=== PATIENT | female | born 1945 | race African-American/Black ===

== ENCOUNTER → 2016-12-20 | Outpatient (CLI) | payer MEDICARE, MEDICAID ==
[~2016-12-20] MED LIST: ASPI-231 PO; POTA10IN PO; ROSU10TA16 PO; THYR60TA PO; VER5I PO
[2016-12-20 13:50] LABS: Basophils # (auto) 0 uL; Basophils % (auto) 0.4 % (0.0-2.0); Eosinophils # (auto) 0.3 uL; Eosinophils % (auto) 6.1 % (0.0-7.0); Hematocrit 39.6 % (36.0-46.0); Hemoglobin 12.5 g/dL (12.2-16.2); Lymphocytes # (auto) 1.9 uL; Lymphocytes % (auto) 36.6 % (10.0-50.0); Mean Corpuscular Hemoglobin 29.7 pg (28.0-32.0); Mean Corpuscular Hgb Conc. 31.6 g/dL (32.0-36.0); Mean Corpuscular Volume 94.2 fL (80.0-100.0); Mean Platelet Volume 8.8 fL (7.4-10.4); Monocytes # (auto) 0.5 uL; Monocytes % (auto) 9.9 % (0.0-12.0); Neutrophils # (auto) 2.4 uL; Platelet Count (auto) 238 10^3/uL (140-450); Red Cell Distribution Width 14.1 % (11.6-16.0); White Blood Cell 5.2 10^3/uL (4.4-10.8)
[2016-12-20 14:17] LABS: Albumin 4.1 g/dL (3.4-5.0); BUN/Creatinine Ratio 14.1; Bilirubin, Total 0.7 mg/dL (0.2-1.0); Calcium 8.9 mg/dL (8.5-10.1); Potassium 3.1 mmol/L (3.5-5.1); Total Protein 8.2 g/dL (6.4-8.2)
[2016-12-20 15:33] LABS: Urine Bilirubin Negative (Negative); Urine Blood Negative /uL (Negative); Urine Color Yellow (Yellow); Urine Glucose TRACE mg/dL (Normal); Urine Hyaline Cast MOD /lpf (0 - 2); Urine Ketone Negative (Negative); Urine Mucus FEW (None Seen); Urine Nitrite Negative (Negative); Urine RBC 1 /hpf (0 - 4); Urine Squamous Epithelial Cell FEW /hpf (<5)
== END | disposition home or self-care (01) ==
LOC: LAB 12:36
PROVIDERS: ATTEND Internal Medicine
DX: Z00.00 Encounter for general adult medical examination without abnormal findings (principal); I10 Essential (primary) hypertension; E11.9 Type 2 diabetes mellitus without complications; E55.9 Vitamin D deficiency, unspecified
CPT/HCPCS: 36415; 80053; 80061; 81001; 82306; 83036; 84439; 84443; 84481; 85025

== ENCOUNTER 2024-02-07 20:58 | Inpatient (IN) | payer MEDICARE, MEDICAID ==
[~2024-02-07] VITALS: Ht 167.6 cm; Wt 85.8 kg
[~2024-02-07 20:58] MED LIST changes: -ASPI-231 PO; +ASPI1TAB20 PO
[2024-02-07] MEDS: IOHEXOL 350 MG/ML 100ML IJ ONE (21:22)
[2024-02-07 21:25] LABS: Basophils # (auto) 0.1 10 ^3/uL (0-0.2); Basophils % (auto) 0.8 % (0.0-2.0); Eosinophils # (auto) 0.2 10 ^3/uL (0-0.8); Eosinophils % (auto) 2.5 % (0.0-7.0); Hematocrit 41.7 % (36.0-46.0); Hemoglobin 13.6 g/dL (12.2-16.2); Lymphocytes # (auto) 2.1 10 ^3/uL (0.4-5.4); Lymphocytes % (auto) 34.2 % (10.0-50.0); Mean Corpuscular Hemoglobin 30.6 pg (28.0-32.0); Mean Corpuscular Hgb Conc. 32.7 g/dL (32.0-36.0); Mean Corpuscular Volume 93.6 fL (80.0-100.0); Monocytes # (auto) 0.6 10 ^3/uL (0-1.3); Monocytes % (auto) 9.2 % (0.0-12.0); Neutrophils # (auto) 3.3 10 ^3/uL (1.6-8.6); Neutrophils % (auto) 53.3 % (37.0-80.0); Red Blood Cells 4.45 10^6/uL (4.0-5.20); Red Cell Distribution Width 14.3 % (11.8-14.3); White Blood Cell 6.2 10^3/uL (4.4-10.8)
[2024-02-07 21:35] LABS: Chloride 106 mmol/L (98-107); Potassium 3.3 mmol/L (3.5-5.1); Sodium 142 mmol/L (136-145)
[2024-02-07 21:36] LABS: Anion Gap 9 (5-15); Calcium 9.5 mg/dL (8.5-10.1); Carbon Dioxide 27 mmol/L (20-30)
[2024-02-07 21:38] LABS: INR 1.03 (0.9-1.15); Prothrombin Time 10.8 sec (9.3-11.8)
[2024-02-07 21:41] LABS: BUN/Creatinine Ratio 14.7 (10.0-20.0); Blood Urea Nitrogen 14 mg/dL (9-23); Glucose 100 mg/dL (74-106)
[2024-02-07 22:00] VITALS: PULSE 70; RESP 15; O2SAT 98
[2024-02-07] MEDS: ASPirin 325 MG TAB PO ONE (22:55)
[2024-02-07] MEDS ORDERED: EMPA1TAB3 PO (23:32)
[2024-02-07] MEDS ORDERED: LEV25T PO (23:37)
[2024-02-07] MEDS ORDERED: AMLO1TAB22 PO (23:37)
[2024-02-07] MEDS ORDERED: METO1TAB9 PO (23:37)
[2024-02-07] MEDS ORDERED: HYDROcodone-ACET 5/325MG TAB PO PRN (23:45)
[2024-02-07] MEDS ORDERED: DOCUSATE SOD 100 MG CAP PO PRN (23:45)
[2024-02-07] MEDS ORDERED: ONDANSETRON HCL 4 MG/2 ML VIAL IV PRN (23:45)
[2024-02-07] MEDS ORDERED: ACETAMINOPHEN 325 MG TAB PO PRN (23:45)
[2024-02-07] MEDS ORDERED: NITROGLYCERIN 0.4 MG SL TAB SL PRN (23:45)
[2024-02-07] MEDS ORDERED: DEXTROSE (50%) 50ML SYRG IV PRN (23:45)
[2024-02-07] MEDS ORDERED: MORPHINE SULFATE INJ 2 MG/ml SYRG IV PRN (23:45)
[2024-02-08] VITALS (12 sets, daily range): BP systolic 113–168; BP diastolic 67–92; PULSE 58–99; RESP 14–20; TEMP 37.1; O2SAT 90–98
[2024-02-08] MEDS: POTASSIUM CHL 20MEQ/100ML 100 ML IV ONE (00:04)
[2024-02-08 06:12] LABS: Basophils # (auto) 0 10 ^3/uL (0-0.2); Basophils % (auto) 0.7 % (0.0-2.0); Eosinophils # (auto) 0.2 10 ^3/uL (0-0.8); Eosinophils % (auto) 3.2 % (0.0-7.0); Hematocrit 36.4 % (36.0-46.0); Lymphocytes # (auto) 1.8 10 ^3/uL (0.4-5.4); Lymphocytes % (auto) 36.8 % (10.0-50.0); Mean Corpuscular Hemoglobin 30.9 pg (28.0-32.0); Mean Corpuscular Hgb Conc. 33.1 g/dL (32.0-36.0); Mean Corpuscular Volume 93.4 fL (80.0-100.0); Monocytes # (auto) 0.5 10 ^3/uL (0-1.3); Monocytes % (auto) 10.3 % (0.0-12.0); Neutrophils # (auto) 2.4 10 ^3/uL (1.6-8.6); Red Cell Distribution Width 14.3 % (11.8-14.3); White Blood Cell 4.8 10^3/uL (4.4-10.8)
[2024-02-08] MEDS: LEVOTHYROXINE SODIUM 25 MCG TAB PO SCH (06:12)
[2024-02-08] MEDS: SODIUM CHLOR 0.9% PF (SALINE LOCK) 10ML VIAL/SYR IV SCH (06:14)
[2024-02-08] MEDS: ACCU-CHEK COMFORT CURVE STRIP VI SCH (06:14)
[2024-02-08] MEDS: InsuLIN REG 1unit/0.01ml Soln (100units/ml) SC SCH ×2 (06:14→21:30)
[2024-02-08 06:28] LABS: Alanine Aminotransferase 40 U/L (7-40); Albumin 4.2 g/dL (3.2-4.8); Alkaline Phosphatase 68 U/L (46-116); Anion Gap 7 (5-15); Aspartate Aminotransferase 38 U/L (13-40); BUN/Creatinine Ratio 13.2 (10.0-20.0); Blood Urea Nitrogen 9 mg/dL (9-23); Calcium 8.8 mg/dL (8.5-10.1); Carbon Dioxide 26 mmol/L (20-30); Chloride 109 mmol/L (98-107); Glucose 100 mg/dL (74-106); Potassium 3.6 mmol/L (3.5-5.1); Sodium 142 mmol/L (136-145)
[2024-02-08 06:29] LABS: Bilirubin, Total 0.4 mg/dL (0.2-1.0); Total Protein 6.3 g/dL (5.7-8.2)
[2024-02-08 08:05] LABS: CRP High Sensitivity 0.07 mg/dL (<1.0)
[2024-02-08 08:44] LABS: Erythrocyte Sedimentation Rate 12 mm/hr (0-20)
[2024-02-08 08:53] LABS: Magnesium 1.7 mg/dL (1.6-2.6)
[2024-02-08 09:01] LABS: % Iron Saturation 32.2 % (15-50)
[2024-02-08 09:10] LABS: Ferritin 183.7 ng/mL (10-291); Folate (Folic Acid) 12.68 ng/mL (>5.38)
[2024-02-08] MEDS: ATORVASTATIN 20 MG TAB PO ONE (09:36)
[2024-02-08] MEDS: CLOPIDOGREL BISULFATE 75 MG TAB PO SCH (09:38)
[2024-02-08] MEDS: METOPROLOL SUCCINATE XL 50 MG TAB PO SCH (09:38)
[2024-02-08] MEDS: ASPirin-EC 81 mg tab PO SCH (09:39)
[2024-02-08] MEDS: amLODIPine BESYLATE 5 MG TAB PO SCH (09:39)
[2024-02-08] MEDS: EMPAGLIFLOZIN 10 MG TAB PO SCH (09:55)
[2024-02-08] MEDS: MIDAZOLAM HCL 2MG/2ML 2ml VIAL (1mg/ml) IV ONE (11:30)
[2024-02-08] MEDS: LIDOCAINE VISCOUS 2% 15ML UD PO ONE (11:30)
[2024-02-08] MEDS: fentaNYL CITRATE 100 MCG/2 ML VL IV ONE (11:30)
[2024-02-08] MEDS: MIDAZOLAM HCL 2MG/2ML 2ml VIAL (1mg/ml) ONE (11:36)
[2024-02-08] MEDS: PANTOPRAZOLE 40 MG TAB PO ONE (17:21)
[2024-02-08] MEDS: ENOXAPARIN SOD 40 MG/0.4 ML SYRINGE SC ONE (17:22)
[2024-02-08 18:29] LABS: Urine Bacteria NONE SEEN /hpf (None Seen); Urine Blood Negative /uL (Negative); Urine Clarity Clear (Clear); Urine Color Colorless (Yellow); Urine Protein, UAD 1+ (Negative); Urine Specific Gravity 1.023 (1.001-1.035); Urine Urobilinogen Normal (Negative); Urine WBC <1 /hpf (0 - 5); Urine pH 5.5 (5.0-8.0)
[2024-02-09] VITALS (8 sets, daily range): BP systolic 119–141; BP diastolic 61–83; PULSE 66–93; RESP 16–20; TEMP 97.8–98.4; O2SAT 91–96
[2024-02-09 06:26] LABS: Basophils # (auto) 0 10 ^3/uL (0-0.2); Basophils % (auto) 0.8 % (0.0-2.0); Eosinophils # (auto) 0.2 10 ^3/uL (0-0.8); Eosinophils % (auto) 3.9 % (0.0-7.0); Hemoglobin 12.5 g/dL (12.2-16.2); Lymphocytes # (auto) 1.7 10 ^3/uL (0.4-5.4); Lymphocytes % (auto) 39.6 % (10.0-50.0); Mean Corpuscular Hemoglobin 31.3 pg (28.0-32.0); Mean Corpuscular Hgb Conc. 33.7 g/dL (32.0-36.0); Monocytes # (auto) 0.5 10 ^3/uL (0-1.3); Neutrophils # (auto) 1.8 10 ^3/uL (1.6-8.6); Neutrophils % (auto) 43.7 % (37.0-80.0); Nucleated Red Blood Cells % 0.1 %; Red Blood Cells 3.98 10^6/uL (4.0-5.20); Red Cell Distribution Width 14.4 % (11.8-14.3); White Blood Cell 4.2 10^3/uL (4.4-10.8)
[2024-02-09 06:46] LABS: Alanine Aminotransferase 35 U/L (7-40); Albumin 3.9 g/dL (3.2-4.8); Alkaline Phosphatase 56 U/L (46-116); Anion Gap 5 (5-15); Aspartate Aminotransferase 26 U/L (13-40); BUN/Creatinine Ratio 11.3 (10.0-20.0); Bilirubin, Total 0.7 mg/dL (0.2-1.0); Blood Urea Nitrogen 8 mg/dL (9-23); Calcium 8.9 mg/dL (8.7-10.4); Carbon Dioxide 28 mmol/L (20-30); Chloride 107 mmol/L (98-107); Glucose 88 mg/dL (74-106); Magnesium 1.8 mg/dL (1.6-2.6); Potassium 3.2 mmol/L (3.5-5.1); Sodium 140 mmol/L (136-145); Total Protein 6.6 g/dL (5.7-8.2)
[2024-02-09] MEDS: POTASSIUM CHLORIDE 60 MEQ, LIDOCAINE 1% (LOCAL ANESTH.) 6 ML in SODIUM CHL 0.9% 500 ML IV ONE (09:59)
[2024-02-09] MEDS: PANTOPRAZOLE 40 MG TAB PO SCH (09:59)
[2024-02-09] MEDS: CLOPIDOGREL BISULFATE 75 MG TAB PO SCH (10:00)
[2024-02-09] MEDS: ENOXAPARIN SOD 40 MG/0.4 ML SYRINGE SC SCH (10:01)
[2024-02-09] MEDS: METOPROLOL SUCCINATE XL 50 MG TAB PO SCH (14:44)
[2024-02-09] MEDS: ATORVASTATIN 20 MG TAB PO SCH (21:42)
[2024-02-10 01:00] VITALS: BP_SYST 124; BP_SYST 125; BP_DIAS 81; BP_DIAS 91; PULSE 74; PULSE 79; RESP 16; RESP 18; TEMP 98.2; TEMP 98.3; O2SAT 92; O2SAT 96
[2024-02-10 05:00] VITALS: BP 124/81; PULSE 74; RESP 18; TEMP 98.2; O2SAT 92
[2024-02-10 07:13] LABS: Anion Gap 8 (5-15); Calcium 9.1 mg/dL (8.5-10.1); Carbon Dioxide 25 mmol/L (20-30); Chloride 108 mmol/L (98-107); Potassium 3.4 mmol/L (3.5-5.1); Sodium 141 mmol/L (136-145)
[2024-02-10 07:18] LABS: Glucose 90 mg/dL (74-106)
[2024-02-10 07:19] LABS: BUN/Creatinine Ratio 11.4 (10.0-20.0); Blood Urea Nitrogen 8 mg/dL (9-23)
[2024-02-10 08:00] VITALS: BP 122/69; PULSE 62; RESP 20; TEMP 97.7; O2SAT 92
[2024-02-10] MEDS ORDERED: CLOP75TA70 PO (09:25)
[2024-02-10] MEDS ORDERED: ATOR20TA PO (09:25)
[2024-02-10] MEDS ORDERED: ASPI-543 PO (09:25)
[2024-02-10] MEDS ORDERED: PANT40T PO (09:25)
[2024-02-10] MEDS: POTASSIUM EFFERVESENT TAB 25 MEQ PO ONE (09:44)
[2024-02-10 10:29] VITALS: BP 122/69; PULSE 62; RESP 20; TEMP 97.6; O2SAT 92
[2024-02-10 12:00] VITALS: BP 133/76; PULSE 74; RESP 20; TEMP 97.8; O2SAT 98
== END 2024-02-10 12:20 | disposition home or self-care (01) | DRG 65 ==
LOC: ER 20:58 → TELE 23:42 → TELE-WESTW 23:42
PROVIDERS: ADMIT Internal Medicine; ATTEND Emergency Medicine
PROC: B24BZZ4 Ultrasonography of Heart with Aorta, Transesophageal (ICD-10-PCS; principal; 2024-02-08)
DX: I63.9 Cerebral infarction, unspecified (principal); I69.354 Hemiplegia and hemiparesis following cerebral infarction affecting left non-dominant side; E87.6 Hypokalemia; I10 Essential (primary) hypertension; E11.9 Type 2 diabetes mellitus without complications; E78.5 Hyperlipidemia, unspecified; R29.810 Facial weakness; Z96.643 Presence of artificial hip joint, bilateral; E66.9 Obesity, unspecified; E03.9 Hypothyroidism, unspecified; R29.703 NIHSS score 3; F17.210 Nicotine dependence, cigarettes, uncomplicated; I44.0 Atrioventricular block, first degree; R47.01 Aphasia; G83.21 Monoplegia of upper limb affecting right dominant side; I34.0 Nonrheumatic mitral (valve) insufficiency; D64.9 Anemia, unspecified; R47.1 Dysarthria and anarthria; Z90.710 Acquired absence of both cervix and uterus; Z90.49 Acquired absence of other specified parts of digestive tract; Z79.82 Long term (current) use of aspirin; Z79.899 Other long term (current) drug therapy; Z82.49 Family history of ischemic heart disease and other diseases of the circulatory system; Z79.02 Long term (current) use of antithrombotics/antiplatelets; Z68.30 Body mass index [BMI] 30.0-30.9, adult; Z79.84 Long term (current) use of oral hypoglycemic drugs
CPT/HCPCS: 36415; 70450; 70496; 70551; 71045; 80048; 80053; 80061; 81001; 82306; 82533; 82607; 82728; 82746; 82962; 83036; 83540; 83550; 83735; 83880; 84443; 84484; 85025; 85610; 85652; 86141; 92610; 93005; 93306; 93312; 93970; 97110; 97116; 97163; 99152; 99291; G0378; J2001; J2250; J3480

== ENCOUNTER → 2024-03-06 | Outpatient (CLI) | payer MEDICARE, MEDICAID ==
[~2024-03-06] MED LIST changes: +AMLO1TAB22 PO; +ASPI-543 PO; +ATOR20TA PO; +CLOP75TA70 PO; +EMPA1TAB3 PO; +LEV25T PO; +METO1TAB9 PO; +PANT40T PO; -ROSU10TA16 PO; -THYR60TA PO; -VER5I PO
[2024-03-06 15:13] LABS: Urine Bacteria None Seen /hpf (None Seen)
[2024-03-06 15:18] LABS: Basophils # (auto) 0 10 ^3/uL (0-0.2); Basophils % (auto) 0.8 % (0.0-2.0); Eosinophils # (auto) 0.3 10 ^3/uL (0-0.8); Eosinophils % (auto) 6.3 % (0.0-7.0); Hematocrit 42.4 % (36.0-46.0); Hemoglobin 13.9 g/dL (12.2-16.2); Lymphocytes # (auto) 1.4 10 ^3/uL (0.4-5.4); Lymphocytes % (auto) 31.9 % (10.0-50.0); Mean Corpuscular Hemoglobin 30.4 pg (28.0-32.0); Mean Corpuscular Hgb Conc. 32.9 g/dL (32.0-36.0); Mean Corpuscular Volume 92.5 fL (80.0-100.0); Monocytes # (auto) 0.5 10 ^3/uL (0-1.3); Monocytes % (auto) 11.5 % (0.0-12.0); Neutrophils # (auto) 2.2 10 ^3/uL (1.6-8.6); Neutrophils % (auto) 49.5 % (37.0-80.0); Red Blood Cells 4.58 10^6/uL (4.0-5.20); Red Cell Distribution Width 13.8 % (11.8-14.3); White Blood Cell 4.4 10^3/uL (4.4-10.8)
[2024-03-06 15:41] LABS: Alanine Aminotransferase 29 U/L (7-40); Albumin 4.9 g/dL (3.2-4.8); Alkaline Phosphatase 62 U/L (46-116); Anion Gap 8 (5-15); Aspartate Aminotransferase 20 U/L (13-40); BUN/Creatinine Ratio 11.1 (10.0-20.0); Bilirubin, Total 0.6 mg/dL (0.2-1.0); Blood Urea Nitrogen 11 mg/dL (9-23); Calcium 9.7 mg/dL (8.5-10.1); Carbon Dioxide 28 mmol/L (20-30); Chloride 104 mmol/L (98-107); Glucose 95 mg/dL (74-106); Sodium 140 mmol/L (136-145); Total Protein 7.9 g/dL (5.7-8.2)
[2024-03-06 16:33] LABS: Urine Blood Negative /uL (Negative); Urine Clarity Clear (Clear); Urine Color Yellow (Yellow); Urine Mucus FEW (None Seen); Urine Protein, UAD 1+ (Negative); Urine Specific Gravity 1.029 (1.001-1.035); Urine Urobilinogen Normal (Negative); Urine WBC 2 /hpf (0 - 5); Urine pH 5.5 (5.0-9.0)
== END | disposition home or self-care (01) ==
LOC: LAB 15:02
PROVIDERS: ATTEND Internal Medicine
DX: I10 Essential (primary) hypertension (principal)
CPT/HCPCS: 36415; 80053; 81001; 82043; 85025

== ENCOUNTER → 2025-02-18 | Outpatient (CLI) | payer MEDICARE, MEDICAID ==
--- NOTE | 2025-02-18 14:08 | DVHSR ---
APPROVED REPORT EXAM: Two-dimensional and M-mode echocardiogram with Doppler and color Doppler. DIMENSIONS LVDd4.7 (3.8-5.7cm)LA (2D)3.7 (1.9-4.0cm)Aortic Root3.2 (2.0-3.7cm) LVDs3.3 (2.5-4.0cm)LA (MM) (1.9-4.0cm)Aortic Cusp Exc1.8 (1.5-2.0cm) EF (%) 56.0 (55-70%)Rt. Atrium3.9 (1.9-4.0cm)Asc. Aorta3.4 cm IVSd1.0 (0.7-1.1cm)RV (D)4.9 (1.8-2.4cm) PWd1.3 (0.7-1.1cm) Mitral Valve MitralMitral Stenosis E wave0.37m/sMV Mean GR.mmHg A wave0.68m/sMV Peak GR.154mmHg E/A ratio0.52D MVAcm2 DECEL [id number] 1/2 Tim[place] Aortic Valve Aortic ValveAortic Stenosis V10.81m/[place] Mean GR.mmHg V21.14m/[place] Peak GR.5mmHg LVOT Diameter2.2 (1.8-2.4cm)Doppler AVA2.70cm2 Pulmonic Valve V20.61m/s Tricuspid Valve TR Velocity2.47m/s [id number] LEFT VENTRICLE The left ventricle is normal size. The left ventricle is normal in structure and function. The Ejection Fraction is within normal limits. The Ejection Fraction is 55-60%. RIGHT VENTRICLE The right ventricle is mildly dilated. ATRIA The left atrium is mildly dilated. The right atrium size is normal. The interatrial septum is intact with no evidence for an atrial septal defect. MITRAL VALVE The mitral valve is normal in structure and function. Mitral regurgitation is moderate. PULMONIC VALVE The pulmonic valve is not well visualized. There is mild pulmonic valvular regurgitation. TRICUSPID VALVE The tricuspid valve is grossly normal. There is mild to moderate tricuspid regurgitation. AORTIC VALVE The aortic valve opens well. No aortic regurgitation is present. GREAT VESSELS The aortic root is normal size. PERICARDIAL EFFUSION There is no pericardial effusion. Conclusion EF >55% MOD TR MOD MR
== END | disposition home or self-care (01) ==
LOC: Rad HDHVI 12:58
PROVIDERS: ATTEND Internal Medicine Cardiovascular Disease
DX: I08.8 Other rheumatic multiple valve diseases (principal); I11.9 Hypertensive heart disease without heart failure; E78.5 Hyperlipidemia, unspecified
CPT/HCPCS: 93306

== ENCOUNTER → 2025-02-23 | Outpatient (CLI) | payer MEDICARE, MEDICAID ==
--- NOTE | 2025-02-27 12:50 | DVHSR ---
APPROVED REPORT Exam: Nuclear Stress Test Indication: Dyspnea Ht: 5 ft 6 in Wt: 172 lbs BSA: 1.88 m2 HR: 58 bpm BP: 147/80 mmHg BMI: 27.75 Rhythm: Bradycardia, First degree AV Block Medical History Medical History: HTN, Hyperlipidemia, Diabetes, Atrial Fibrillation, SOB, Chest pain Medications: Magnesium Glycinate, Levothyroxine, Metoprolol succinate, Amlodipine, Eliquis, Potassium , Jardiance, Rosuvastatin, Flecainide Allergies: No known drug allergies Cardiac Risk Factors: Family Hx of CAD Stress Test Details Stress Test: Exercise stress testing was performed using a Lavell protocol. HR Resting HR: 58 bpmMax Heart Rate (APMHR): 138.146104 bpm Max HR Achieved: 115 bpmTarget HR (85% APMHR): 117.441165 bpm % of APMHR: 83.33 Recovery HR: 70 bpm HR response to stress: Normal HR response to stress BP Resting BP: 147/80 mmHg Max BP: 168/81 mmHg Recovery BP: 146/78 mmHg BP response to stress: Normal blood pressure response to stress. ECG Resting ECG: Sinus Bradycardia Stress ECG: Sinus Tachycardia Arrhythmia: PACs, PVC Recovery ECG: Sinus Rhythm Clinical Reason for Termination: Dyspnea, Fatigue Stress Symptoms: Dyspnea, Fatigue Exercise duration: 3 min sec Exercise capacity: 4.6 METs Fatigue and dyspnea improved during recovery. Stress ECG Conclusion NON ISCHEMIC CLINICAL RESPONSE NON ISCHEMIC ECG RESPONSE NO PERFUSION DEFECT NOTED DURING STRESS CARDIOLITE EF >55% LESS THAN 10% LIKELIHOOD FOR STRESS INDUCED ISCHEMIA NM EXAM: Myocardial Perfusion REST/STRESS Imaging Protocol: Rest Tc-99m/Stress Tc-99m 1 day Resting Data Rest SPECT myocardial perfusion imaging was performed in supine position 30 minutes following the int ravenous injection of 11 mCi of Tc-99m Sestamibi. Time of rest injection: 1316 Date: 02/23/2025 Time of rest imagin Date: 02/23/2025 Administration Route: IV Administration Site: Left AC Exercise Stress At peak stress, the patient was injected intravenously with 32.8 mCi of Tc-99m Sestamibi. Time of stress injection: 1419 Date: 02/23/2025 Time of stress imagin Date: 02/23/2025 Administration Route: IV Administration Site: Left AC Heart Rate at time of stress injection: 115 bpm. Patient continued to exercise for 0.5 minute(s). Gated Stress SPECT was performed 15 minutes after stress injection. The images were gated to evaluate regional wall motion and calculate left ventricular ejection fracti on. Comments Cardiolite injection at 2 minutes, 30 seconds into test. Study Data Post stress, the left ventricular ejection was 56%.. Nuclear Conclusion NON ISCHEMIC CLINICAL RESPONSE NON ISCHEMIC ECG RESPONSE NO PERFUSION DEFECT NOTED DURING STRESS CARDIOLITE EF >55% LESS THAN 10% LIKELIHOOD FOR STRESS INDUCED ISCHEMIA
== END | disposition home or self-care (01) ==
LOC: Rad HDHVI 12:52
PROVIDERS: ATTEND Internal Medicine Cardiovascular Disease
DX: I49.1 Atrial premature depolarization (principal); I49.3 Ventricular premature depolarization; I44.0 Atrioventricular block, first degree; R00.1 Bradycardia, unspecified; R06.00 Dyspnea, unspecified; I10 Essential (primary) hypertension; E11.65 Type 2 diabetes mellitus with hyperglycemia; I27.20 Pulmonary hypertension, unspecified; E78.5 Hyperlipidemia, unspecified; I48.0 Paroxysmal atrial fibrillation; I47.10 Supraventricular tachycardia, unspecified; R07.89 Other chest pain; R06.02 Shortness of breath; Z82.49 Family history of ischemic heart disease and other diseases of the circulatory system
CPT/HCPCS: 78452; 93017; A9500; 96374

== ENCOUNTER → 2025-08-19 | Outpatient (CLI) | payer MEDICARE, MEDICAID ==
[~2025-08-19] MED LIST changes: +APIX2.5T PO; +HEPARIN IN NS 1000Units/500mL 1,500 ML ONE; +IODIXANOL 320MG/ML 100ML BTL IV ONE; +MAGN400T40 PO; +ROSU10TA16 PO; +SEMA4INJ SC
[2025-08-19 10:18] VITALS: BP 142/81; PULSE 64; RESP 16; O2SAT 96
[2025-08-19 10:31] VITALS: BP 120/79; PULSE 65; RESP 16; O2SAT 96
--- NOTE | 2025-08-20 11:18 | DVHHP ---
ADMIT DATE: 08/19/2025 HISTORY OF PRESENT ILLNESS: The patient is 80 years old with history of chest pain, shortness of breath. She had a syncopal episode, marked dizziness. She also has a lung nodule that needs to be biopsied at a later date. Because of the above finding and because of the symptoms of chest pain and near syncopal episode the patient has been experiencing, before any surgical intervention is warranted the patient should undergo left heart catheterization as possibility of implanting a loop recorder. A 48-hour Holter and telemonitor failed to demonstrate any significant dysrhythmia. PERTINENT MEDICAL HISTORY: Significant for: * Hypertension. * Hyperlipidemia. * History of CVA. * History of chronic lung disease with a lung nodule. * History of tobacco use. She discontinued several years ago. * History of diabetes with diabetic neuropathy, vasculopathy, nephropathy. * Chronic kidney disease as well stage I and II. REVIEW OF SYSTEMS: Denies any fever, chills, melena, hematochezia, hematemesis, hemoptysis. Denies any syncopal episode. Denies any history of head trauma. No fever. No chills. No bleeding diathesis as well. PHYSICAL EXAMINATION: VITAL SIGNS: Blood pressure is 134/80, pulse 70, O2 saturation 98% on room air. HEENT: Pupils are reactive. Funduscopic exam shows no AV nicking, no exudates, no papilledema. Sclerae anicteric. Extraocular muscles are intact. NECK: No JVD appreciated. Carotid pulses are 2+ symmetrical. Normal upstroke and contour. No cervical adenopathy. No supraclavicular adenopathy. PULMONARY: Clear to auscultation. CARDIOVASCULAR: Regular rate, without S3, without S4. PMI is not displaced. ABDOMEN: Soft. Nontender. Positive bowel sounds. Obese. Stool guaiac is negative. No epigastric tenderness. No suprapubic tenderness. No CVA tenderness. Liver approximately 5 cm. NEUROLOGICAL: The patient is intact. EXTREMITIES: The patient's lower extremity pulses are 2+ and symmetrical. Thus, the patient with: * Remote history of tobacco use. * COPD. * Now with hypertension, chest pain, and also dizziness with near syncope. The patient is now to undergo left heart catheterization. If left heart catheterization is negative, then I will consider the patient for a loop recorder. Nick Mckeon MD SA/TRAV TID: [id number] RECEIPT: [id number]
== END | disposition home or self-care (01) ==
LOC: CHF HDHVI 10:07
PROVIDERS: ATTEND Internal Medicine Cardiovascular Disease
DX: Z01.810 Encounter for preprocedural cardiovascular examination (principal); I48.91 Unspecified atrial fibrillation; R55 Syncope and collapse
CPT/HCPCS: 93005; G0463

== ENCOUNTER 2025-08-20 07:54 | Day surgery (SDC) | payer MEDICARE, MEDICAID ==
[2025-08-19 11:25] LABS: Hematocrit 39.7 % (36.0-46.0); Hemoglobin 13.2 g/dL (12.2-16.2); Mean Corpuscular Hemoglobin 31.5 pg (28.0-32.0); Mean Corpuscular Volume 94.7 fL (80.0-100.0); Nucleated Red Blood Cells % 0.3 %
[2025-08-19 11:30] LABS: INR 1.03 (0.9-1.15); Partial Thromboplastin Time 28.6 SEC (24.5-34.5); Prothrombin Time 10.9 sec (9.3-11.8)
[2025-08-19 11:39] LABS: Chloride 104 mmol/L (98-107); Potassium 4.3 mmol/L (3.5-5.1); Sodium 143 mmol/L (136-145)
[2025-08-19 11:40] LABS: Anion Gap 11 (5-15); Calcium 9.6 mg/dL (8.7-10.4); Carbon Dioxide 28 mmol/L (20-31)
[2025-08-19 11:45] LABS: BUN/Creatinine Ratio 15.1 (10.0-20.0); Blood Urea Nitrogen 13 mg/dL (9-23); Glucose 99 mg/dL (74-106)
[~2025-08-20] VITALS: Ht 167.6 cm; Wt 78.9 kg
[2025-08-20] VITALS (7 sets, daily range): BP systolic 106–130; BP diastolic 67–74; PULSE 63–68; RESP 11–15; TEMP 97.3; O2SAT 95–100
[~2025-08-20 07:54] MED LIST changes: -ASPI-543 PO; -ASPI1TAB20 PO; -ATOR20TA PO; -CLOP75TA70 PO; -HEPARIN IN NS 1000Units/500mL 1,500 ML ONE; -IODIXANOL 320MG/ML 100ML BTL IV ONE
[2025-08-20] MEDS ORDERED: fentaNYL CITRATE 100 MCG/2 ML VL ONE (10:19)
[2025-08-20] MEDS ORDERED: ANGIOMAX 250 MG VIAL IV ONE (10:19)
[2025-08-20] MEDS ORDERED: SODIUM CHL 0.9% 0 ML ONE (10:20)
[2025-08-20] MEDS ORDERED: MIDAZOLAM HCL 2MG/2ML 2ml VIAL (1mg/ml) ONE (10:20)
[2025-08-20] MEDS ORDERED: LIDOCAINE 2%HCL (LOCAL ANESTH.) INJ 20ML MDV ONE (10:20)
--- NOTE | 2025-08-20 11:20 | DVHOP ---
DATE OF SURGERY: 08/20/2025 PROCEDURES PERFORMED: * Selective left and right coronary angiography. * Ventriculogram. * Right iliac angiography. * Conscious sedation. DESCRIPTION OF PROCEDURE: The patient was prepped and draped in a sterile condition. 1% Xylocaine used to anesthetize the right groin. Using Cook needle, right femoral artery was engaged with Seldinger technique, a 6-Martiniquais sheath in the right femoral artery. Using a 6-Martiniquais JL4 catheter and a 6-Martiniquais JR4 catheter, selective left and right coronary angiographies were performed. Using 6-Martiniquais pigtail catheter, ventriculogram was done. Right iliac angiography was done using a 6-Martiniquais sheath. There were no complications. The patient tolerated the procedure well. RESULTS: * Left main patent. * Left anterior descending artery was patent. * Circumflex was patent. * Right coronary artery was patent. Left ventricular function was preserved with an estimated EF of 55-60% and LVEDP of 20 mmHg with left ventricular systolic pressure of 140-160. Thus, the patient with mild symptoms of diastolic dysfunction secondary to hypertension. Aggressive antihypertensive therapy should be initiated with afterload and preload reduction, but no catheter-based surgical intervention is warranted. The patient's epicardial vessels all within normal limits with preserved left ventricular ejection fraction of 55-60%. Nick Mckeon MD SA/EKT TID: [id number] RECEIPT: [id number]
[2025-08-20] MEDS: ONDANSETRON HCL 4 MG/2 ML VIAL IV ONE (11:30)
[2025-08-20] MEDS: D5W 5% 1,000 ML IV ONE (11:30)
--- NOTE | 2025-08-20 11:45 | DVHDS ---
DATE OF DISCHARGE: 08/20/2025 DISCHARGE DIAGNOSES: * Diastolic dysfunction. * Elevated LVEDP of 20 mmHg. * Elevated systolic blood pressure. The patient, however, has normal coronary anatomy. At this time, left ventricular ejection fraction is around 55%-60%. Aggressive antihypertensive therapy should be initiated, but no catheter-based or surgical intervention is warranted. Stable at the time of discharge. DISPOSITION: Home. ACTIVITY: As instructed. DIET: 2 g sodium diet. Nick Mckeon MD SA/NIR TID: [id number] RECEIPT: [id number]
== END 2025-08-20 13:35 | disposition home or self-care (01) ==
LOC: CATH 07:54
PROVIDERS: ATTEND Internal Medicine Cardiovascular Disease
DX: R06.02 Shortness of breath (principal); R55 Syncope and collapse; I11.0 Hypertensive heart disease with heart failure; I50.30 Unspecified diastolic (congestive) heart failure; Z79.890 Hormone replacement therapy; Z79.899 Other long term (current) drug therapy; Z90.710 Acquired absence of both cervix and uterus; Z87.891 Personal history of nicotine dependence
CPT/HCPCS: 36415; 80048; 82962; 85025; 85610; 85730; 93458; C1760; C1769; C1894; J2405; J3010; J7060; 99152; J2250; Q9967